=== PATIENT | female | born 1990 | race Caucasian/White ===

== ENCOUNTER 2016-10-30 22:12 | Emergency (ER) | payer MEDICARE, OTHER ==
[2016-10-30 23:23] LABS: BLOOD UREA NITROGEN 8 mg/dL (7-18); CALCIUM 8.2 mg/dL (8.7-10.7); CARBON DIOXIDE 20 mmol/L (21-32); CREATININE 0.6 mg/dL (0.6-1.3); GLUCOSE,RANDOM 123 mg/dL (70-99); POTASSIUM 3.7 mmol/L (3.5-5.1); SODIUM 136 mmol/L (136-145)
== END 2016-10-31 01:15 | disposition left against medical advice (07) ==
LOC: ER 22:12
PROVIDERS: General Practice
DX: L03.213 Periorbital cellulitis (principal); F17.210 Nicotine dependence, cigarettes, uncomplicated
CPT/HCPCS: 36415; 70486; 80048; 84703; 96372; 99070; 99283; 99284-25; J3370; J7050

== ENCOUNTER 2016-12-19 19:22 | Emergency (ER) | payer MEDICARE, OTHER | END 2016-12-19 22:16 | disposition home or self-care (01) | LOC: ER 19:22 | DX: L02.01 Cutaneous abscess of face (principal) | CPT/HCPCS: 10061; 87070; 87186; 96372; 99070; 99283-25; 99284 ==

== ENCOUNTER 2016-12-21 20:44 | Emergency (ER) | payer MEDICARE, OTHER | END 2016-12-21 21:27 | disposition home or self-care (01) | LOC: ER 20:44 | DX: Z48.817 Encounter for surgical aftercare following surgery on the skin and subcutaneous tissue (principal); F17.210 Nicotine dependence, cigarettes, uncomplicated; Z86.14 Personal history of Methicillin resistant Staphylococcus aureus infection | CPT/HCPCS: 99070; 99282 ==